=== PATIENT | male | born 1950 ===

== ENCOUNTER 2019-02-01 11:01 | Inpatient (IN) ==
[2019-02-01] MEDS ORDERED: HYDROCORTISONE 100 MG VIAL IV ONE (14:33)
[2019-02-01] MEDS ORDERED: diphenhydrAMINE CAP 25 MG CAPSULE PO PRN (14:42)
[2019-02-01] MEDS ORDERED: MORPHINE 4 MG/1 ML VIAL IV PRN (14:42)
[2019-02-01] MEDS ORDERED: ONDANSETRON 4 MG/2 ML VIAL IV PRN (14:42)
[2019-02-01] MEDS ORDERED: PROMETHAZINE 25 MG TABLET PO PRN (14:42)
[2019-02-01] MEDS ORDERED: GLUCAGON 1 MG VIAL IM PRN (14:45)
[2019-02-01] MEDS ORDERED: DEXTROSE 50% 25 GM/50 ML SYRINGE IV PRN (14:45)
[2019-02-01] MEDS ORDERED: DEXTROSE 5% 1,000 ML IV SCH (15:30)
[2019-02-01 15:51] LABS: Calcium 8.9 MG/DL (8.5-10.1); Osmolality,Calculated 286.8 MOS/KG (273-304); Potassium 3.9 MMOL/L (3.5-5.1)
[2019-02-01] MEDS: DEXTROSE 5% NACL 0.45% 1,000 ML IV SCH (16:25)
[2019-02-01] MEDS: HYDROCORTISONE 100 MG VIAL IV SCH (21:42)
[2019-02-01] MEDS: INSULIN LISPRO 100 UNIT/ML SUBCUT SCH (21:43)
[2019-02-02] MEDS: INSULIN LISPRO 100 UNIT/ML SUBCUT SCH ×6 (00:53→20:04)
[2019-02-02 04:31] LABS: Osmolality,Calculated 290.1 MOS/KG (273-304); Potassium 4.3 MMOL/L (3.5-5.1)
[2019-02-02] MEDS: HYDROCORTISONE 100 MG VIAL IV SCH ×3 (10:35→20:05)
[2019-02-02] MEDS: PANTOPRAZOLE 40 MG TABLET PO SCH (10:36)
[2019-02-02] MEDS ORDERED: TISSUE ADHESIVE 1 EACH APPLICATOR TOP ONE (11:07)
[2019-02-02] MEDS: DEXTROSE 5% NACL 0.45% 1,000 ML IV SCH (11:16)
[2019-02-02] MEDS ORDERED: DEXTROSE 5% NACL 0.9% 1,000 ML IV SCH (11:30)
[2019-02-02] MEDS: SEVELAMER CARBONATE 800 MG TABLET PO SCH ×2 (12:00→18:09)
[2019-02-02 12:03] LABS: Neutrophils,Peritoneal Fluid 13 %
[2019-02-02 12:04] LABS: RBC,Peritoneal Fluid 712 T/CUMM
[2019-02-02 15:06] LABS: % Iron Saturation 56.3 % (18-50)
[2019-02-02 15:52] LABS: INR 1.2; PT Patient Result 13.1 SECS; Partial Thromboplastin Time 28.7 SECS (0-40)
[2019-02-02 16:50] LABS: Hepatitis A Ab IgM Result Negative (Negative); Hepatitis B Core IgM Quant 0.12 Index; Hepatitis B Core IgM Result Negative (Negative); Hepatitis B Surface Ag Quant 0.11 Index; Hepatitis B Surface Ag Result Negative (Negative); Hepatitis C Virus Ab Result Negative (Negative)
[2019-02-03] MEDS: INSULIN LISPRO 100 UNIT/ML SUBCUT SCH ×5 (00:16→17:48)
[2019-02-03] MEDS: HYDROCORTISONE 100 MG VIAL IV SCH ×2 (03:18→11:38)
[2019-02-03 04:07] LABS: Basophils % 0.2 % (0.0-0.8); Hematocrit 35.1 VOL% (42.0-52.0); Hemoglobin 10.8 GM/DL (14.0-18.0); Immature Granulocytes % 0.5 %; Immature Granulocytes Absolute 0.04 #; Lymphocytes # 0.5 10*3/uL (1.4-4.0); Lymphocytes % 6.2 % (21.2-54.2); Mean Corpuscular HGB Conc 30.8 GM/DL (32-36); Mean Corpuscular Hemoglobin 33 PG (27-34); Mean Corpuscular Volume 105.7 FL (87-102); Mean Platelet Volume 11.6 FL (9.6-12.0); Monocytes # 0.6 10*3/uL (0.11-0.8); Monocytes % 7.8 % (1.7-12.7); Neutrophils % 85.3 % (38.7-73.9); Platelet Count 196 T/CUMM (130-400); Red Blood Count 3.32 MC/CUMM (3.8-5.5); Red Cell Distribution Width 16.8 % (9.3-17.3); White Blood Count 8.2 T/CUMM (4-12)
[2019-02-03 04:30] LABS: Albumin 2.4 G/DL (3.4-5.0); Bilirubin,Total 0.6 MG/DL (0.2-1.0); Calcium 8.6 MG/DL (8.5-10.1); Osmolality,Calculated 293.1 MOS/KG (273-304); Potassium 4.7 MMOL/L (3.5-5.1); Total Protein 7.2 G/DL (6.4-8.3)
[2019-02-03] MEDS: SEVELAMER CARBONATE 800 MG TABLET PO SCH ×3 (08:13→17:50)
[2019-02-03] MEDS: PANTOPRAZOLE 40 MG TABLET PO SCH (08:13)
[2019-02-03 11:48] VITALS: BP 112/67
== END 2019-02-03 19:58 | DRG 638 ==
LOC: SUATTDRO 13:47 → N.ICU 13:47
PROVIDERS: ADMIT Internal Medicine; ATTEND Internal Medicine Geriatric Medicine

== ENCOUNTER 2019-10-16 22:07 | Inpatient (IN) ==
[2019-10-17] MEDS ORDERED: DEXTROSE 50% 25 GM/50 ML VIAL IV PRN ×2 (00:36)
[2019-10-17] MEDS ORDERED: ACETAMINOPHEN 325 MG TABLET PO PRN (00:36)
[2019-10-17] MEDS ORDERED: ONDANSETRON 4 MG/2 ML VIAL IV PRN (00:36)
[2019-10-17] MEDS ORDERED: GLUCAGON 1 MG VIAL IM PRN ×2 (00:36)
[2019-10-17 07:01] LABS: Basophils % 0.7 % (0.0-0.8); Eosinophils # 0.1 10*3/uL (0.0-0.87); Eosinophils % 1.7 % (0.00-10.9); Hemoglobin 9.3 GM/DL (14.0-18.0); Immature Granulocytes % 0.5 %; Immature Granulocytes Absolute 0.02 #; Lymphocytes # 0.8 10*3/uL (1.4-4.0); Lymphocytes % 19.1 % (21.2-54.2); Mean Corpuscular HGB Conc 32.1 GM/DL (32-36); Mean Corpuscular Volume 102.5 FL (87-102); Mean Platelet Volume 11.6 FL (9.6-12.0); Platelet Count 141 T/CUMM (130-400); Red Blood Count 2.83 MC/CUMM (3.8-5.5); White Blood Count 4.2 T/CUMM (4-12)
[2019-10-17 07:08] LABS: Albumin 2.3 G/DL (3.4-5.0); Bilirubin,Total 0.7 MG/DL (0.2-1.0); Calcium 8.7 MG/DL (8.5-10.1); Osmolality,Calculated 306.5 MOS/KG (273-304); Total Protein 7.4 G/DL (6.4-8.3)
[2019-10-17] MEDS: INSULIN REGULAR 100 UNIT/ML SUBCUT SCH ×3 (08:51→18:15)
[2019-10-17] MEDS: PANTOPRAZOLE 40 MG TABLET PO SCH (08:59)
[2019-10-17] MEDS: HEPARIN 5,000 UNIT/1 ML VIAL SUBCUT SCH ×2 (08:59→18:16)
[2019-10-17] MEDS ORDERED: ENOXAPARIN 30 MG/0.3 ML SYRINGE SUBCUT SCH (09:00)
[2019-10-18] MEDS: INSULIN REGULAR 100 UNIT/ML SUBCUT SCH ×5 (02:03→21:06)
[2019-10-18] MEDS: HEPARIN 5,000 UNIT/1 ML VIAL SUBCUT SCH (03:09)
[2019-10-18 08:51] LABS: Basophils % 0.3 % (0.0-0.8); Eosinophils # 0.1 10*3/uL (0.0-0.87); Eosinophils % 2.8 % (0.00-10.9); Hematocrit 30.7 VOL% (42.0-52.0); Hemoglobin 9.9 GM/DL (14.0-18.0); Immature Granulocytes % 0.3 %; Immature Granulocytes Absolute 0.01 #; Lymphocytes % 25.6 % (21.2-54.2); Mean Corpuscular HGB Conc 32.2 GM/DL (32-36); Mean Corpuscular Volume 103.7 FL (87-102); Mean Platelet Volume 11.6 FL (9.6-12.0); Monocytes % 11.3 % (1.7-12.7); Neutrophils % 59.7 % (38.7-73.9); Platelet Count 138 T/CUMM (130-400); Red Blood Count 2.96 MC/CUMM (3.8-5.5); Red Cell Distribution Width 15.6 % (9.3-17.3)
[2019-10-18] MEDS: PANTOPRAZOLE 40 MG TABLET PO SCH (08:53)
[2019-10-18 09:02] LABS: Calcium 8.6 MG/DL (8.5-10.1); Osmolality,Calculated 284.1 MOS/KG (273-304)
[2019-10-18] MEDS ORDERED: ALBUTEROL/IPRATROPIUM 3 ML NEB RESP TX PRN (10:31)
[2019-10-18] MEDS: LEVOFLOXACIN INJ 500 MG in PREMIX 1 EACH IV SCH (12:08)
[2019-10-19 05:33] LABS: Basophils % 0.2 % (0.0-0.8); Eosinophils # 0.1 10*3/uL (0.0-0.87); Eosinophils % 1.5 % (0.00-10.9); Hematocrit 31.1 VOL% (42.0-52.0); Immature Granulocytes % 0.4 %; Immature Granulocytes Absolute 0.02 #; Lymphocytes # 1.2 10*3/uL (1.4-4.0); Lymphocytes % 25.6 % (21.2-54.2); Mean Corpuscular HGB Conc 32.2 GM/DL (32-36); Mean Corpuscular Volume 102.6 FL (87-102); Mean Platelet Volume 11.8 FL (9.6-12.0); Monocytes % 8.4 % (1.7-12.7); Neutrophils % 63.9 % (38.7-73.9); Platelet Count 141 T/CUMM (130-400); Red Blood Count 3.03 MC/CUMM (3.8-5.5); Red Cell Distribution Width 15.5 % (9.3-17.3); White Blood Count 4.5 T/CUMM (4-12)
[2019-10-19 05:49] LABS: Calcium 8.6 MG/DL (8.5-10.1); Osmolality,Calculated 290.1 MOS/KG (273-304)
[2019-10-19] MEDS: INSULIN REGULAR 100 UNIT/ML SUBCUT SCH ×4 (07:09→21:09)
[2019-10-19] MEDS: PANTOPRAZOLE 40 MG TABLET PO SCH (08:29)
[2019-10-19 09:20] LABS: INR 1.1; PT Patient Result 12.1 SECS (9.6-12.2)
[2019-10-19 09:59] LABS: Albumin 2.5 G/DL (3.4-5.0)
[2019-10-20 05:52] LABS: Basophils % 0.4 % (0.0-0.8); Eosinophils # 0.1 10*3/uL (0.0-0.87); Eosinophils % 2.5 % (0.00-10.9); Hematocrit 30.6 VOL% (42.0-52.0); Hemoglobin 10.1 GM/DL (14.0-18.0); Immature Granulocytes % 0.4 %; Immature Granulocytes Absolute 0.02 #; Lymphocytes % 21.2 % (21.2-54.2); Mean Platelet Volume 11.9 FL (9.6-12.0); Monocytes % 7.8 % (1.7-12.7); Neutrophils % 67.7 % (38.7-73.9); Platelet Count 154 T/CUMM (130-400); Red Blood Count 3.03 MC/CUMM (3.8-5.5); Red Cell Distribution Width 15.5 % (9.3-17.3); White Blood Count 4.9 T/CUMM (4-12)
[2019-10-20 06:19] LABS: Calcium 8.5 MG/DL (8.5-10.1); Osmolality,Calculated 306.4 MOS/KG (273-304)
[2019-10-20] MEDS: PANTOPRAZOLE 40 MG TABLET PO SCH (09:05)
[2019-10-20] MEDS: INSULIN REGULAR 100 UNIT/ML SUBCUT SCH ×2 (09:05→11:31)
[2019-10-20] MEDS: LEVOFLOXACIN INJ 500 MG in PREMIX 1 EACH IV SCH (11:30)
[2019-10-20 12:17] VITALS: BP 132/60
== END 2019-10-20 15:27 | DRG 193 ==
LOC: N.5E → SUATTDRO 23:40
PROVIDERS: ADMIT Internal Medicine; ATTEND Internal Medicine